=== PATIENT | female | born 1985 | race African-American/Black ===

== ENCOUNTER 2017-05-11 20:24 | Emergency (ER) | payer OTHER ==
[~2017-05-11] VITALS: Ht 170.2 cm; Wt 94.1 kg
[~2017-05-11 20:24] MED LIST: PREDNISONE10 M1 PO
[2017-05-11] MEDS ORDERED: ERGOCALCIF50000 UNIT PO (21:39)
[2017-05-11] MEDS ORDERED: PLAQUENIL200 MG PO (21:39)
[2017-05-11] MEDS ORDERED: IRON325 M1 PO (21:40)
[2017-05-11] MEDS ORDERED: PERCOCET 10/1 TABLET PO (21:41)
[2017-05-11] MEDS ORDERED: VENTOLIN HFA18 GM IH (21:41)
[2017-05-11] MEDS ORDERED: PROVENTIL,2.5 MG/3 M IH (21:42)
[2017-05-11] MEDS ORDERED: BUDESONIDE0.5 MG/2 M IH (21:43)
[2017-05-11] MEDS ORDERED: SINGULAIR10 MG PO (21:43)
[2017-05-11] MEDS ORDERED: ADVAIR 500/501 DISK IH (21:43)
[2017-05-11] MEDS ORDERED: PREDNISONE20 MG PO (21:44)
[2017-05-11 21:47] LABS: ADD MIUA? YES; BILIRUBIN NEGATIVE; BLOOD NEGATIVE; COLOR YELLOW ((YELLOW)); GLUCOSE (STRIP) NEGATIVE; KETONES NEGATIVE; LEUKOCYTES MODERATE; NITRITE NEGATIVE; PROTEIN (STRIP) NEGATIVE; SPECIFIC GRAVITY 1.014 (1.000-1.030); UROBILINOGEN 0.2 MG/DL (0.2-1.0)
[2017-05-11 21:48] LABS: CHLORIDE 105 mEq/L (99-109); POTASSIUM 3.5 mEq/L (3.7-5.4); SODIUM 139 mEq/L (136-147)
[2017-05-11 21:50] LABS: GLUCOSE 81 mg/dL (70-99)
[2017-05-11 21:51] LABS: ANION GAP 9 MEQ/L (2-14)
[2017-05-11 21:52] LABS: TOTAL BILIRUBIN 0.2 mg/dL (0.0-1.0)
[2017-05-11 21:54] LABS: ALKALINE PHOSPHATASE 53 IU/L (3-129); GFR ESTIMATE (CALCULATED) > 59 mL/min/; HEMATOCRIT 31.7 % (36.0-46.0); MCH 19.7 PG (29.0-34.0); MCHC 28.7 G/DL (30.0-36.0); MCV 68.6 FL (83-99); MEAN PLAT.VOLUME 9.1 uM^3 (9.5-12.4); PLATELET COUNT 392 K/uL (156-360); RBC DIS.WIDTH-CV 19.3 % (11.8-14.6); RBC DIS.WIDTH-SD 47.4 % (39-53); RED BLOOD COUNT 4.62 M/uL (3.80-5.20); WHITE BLOOD COUNT 7.8 K/uL (4.1-10.2)
[2017-05-11 21:55] LABS: UREA NITROGEN (BUN) 7 mg/dL (9-23)
[2017-05-11 21:59] LABS: BACTERIA RARE /HPF; EPITHELIAL CELLS 1+ /HPF; MUCUS 1+ /LPF; RED BLOOD CELLS 0-5 /HPF (0-5); UCUL ADDED? YES
[2017-05-11 22:03] LABS: QUANTITATIVE HCG < 4.0 MIU/ML
[2017-05-11 22:21] LABS: ERTH.SED.RATE 63 MM/HR (0-20)
[2017-05-11 22:23] LABS: C-REACTIVE PROTEIN 7.8 MG/L (0-10)
[2017-05-12 00:19] VITALS: BP 149/81
== END 2017-05-12 00:20 | disposition home or self-care (01) ==
LOC: EME 20:24
PROVIDERS: Physician Assistant
DX: M32.9 Systemic lupus erythematosus, unspecified (principal); D64.9 Anemia, unspecified
CPT/HCPCS: 80053; 81003; 84702; 85027; 85651; 86140; 87086; 99281; 99284; J2930; J3010; J7030

== ENCOUNTER 2017-05-17 17:10 | Emergency (ER) | payer OTHER ==
[~2017-05-17] VITALS: Ht 175.3 cm; Wt 94.8 kg
[~2017-05-17 17:10] MED LIST changes: +ADVAIR 500/501 DISK IH; +BUDESONIDE0.5 MG/2 M IH; +ERGOCALCIF50000 UNIT PO; +IRON325 M1 PO; +PERCOCET 10/1 TABLET PO; +PLAQUENIL200 MG PO; +PREDNISONE20 MG PO; +PROVENTIL,2.5 MG/3 M IH; +SINGULAIR10 MG PO; +VENTOLIN HFA18 GM IH
[2017-05-17 18:19] LABS: EOSINOPHIL (%) 2.3 % (0-5); EOSINOPHIL COUNT 0.2 K/uL (0-0.3); HEMATOCRIT 31.2 % (36.0-46.0); IMMATURE GRANULOCYTE (%) 0.3 % (0.0-0.7); INSTRUMENT ABS NEUTROPHIL CT 3.2 K/uL; LYMPHOCYTE COUNT 3.1 K/uL (1.0-2.8); MCH 19.7 PG (29.0-34.0); MCHC 28.8 G/DL (30.0-36.0); MCV 68.3 FL (83-99); MEAN PLAT.VOLUME 8.9 uM^3 (9.5-12.4); MONOCYTE COUNT 0.6 K/uL (0-0.8); NEUTROPHIL (%) 45.5 % (45-76); NEUTROPHIL COUNT 3.2 K/uL (1.8-6.4); PLATELET COUNT 390 K/uL (156-360); RBC DIS.WIDTH-CV 19.1 % (11.8-14.6); RBC DIS.WIDTH-SD 46.5 % (39-53); RED BLOOD COUNT 4.57 M/uL (3.80-5.20); WHITE BLOOD COUNT 7.1 K/uL (4.1-10.2)
[2017-05-17 18:22] LABS: CHLORIDE 107 mEq/L (99-109); POTASSIUM 3.2 mEq/L (3.7-5.4); SODIUM 139 mEq/L (136-147)
[2017-05-17 18:23] LABS: GLUCOSE 75 mg/dL (70-99)
[2017-05-17 18:25] LABS: ANION GAP 8 MEQ/L (2-14)
[2017-05-17 18:27] LABS: GFR ESTIMATE (CALCULATED) > 59 mL/min/
[2017-05-17 18:28] LABS: UREA NITROGEN (BUN) 7 mg/dL (9-23)
[2017-05-17 20:17] VITALS: BP 120/71
== END 2017-05-17 20:18 | disposition home or self-care (01) ==
LOC: EME 17:10
PROVIDERS: Physician Assistant
DX: D64.9 Anemia, unspecified (principal); E87.6 Hypokalemia; J45.909 Unspecified asthma, uncomplicated
CPT/HCPCS: 80048; 85025; 93005; 99281; 99283

== ENCOUNTER 2017-07-07 00:48 | Emergency (ER) | payer OTHER ==
[~2017-07-07] VITALS: Ht 175.3 cm; Wt 93.9 kg
[2017-07-07 01:28] LABS: HEMATOCRIT 32.5 % (36.0-46.0); MCH 21.1 PG (29.0-34.0); MCHC 29.8 G/DL (30.0-36.0); MCV 70.8 FL (83-99); MEAN PLAT.VOLUME 9.1 uM^3 (9.5-12.4); PLATELET COUNT 437 K/uL (156-360); RBC DIS.WIDTH-CV 23.2 % (11.8-14.6); RBC DIS.WIDTH-SD 53.9 % (39-53); RED BLOOD COUNT 4.59 M/uL (3.80-5.20)
[2017-07-07 01:33] LABS: CHLORIDE 108 mEq/L (99-109); POTASSIUM 3.4 mEq/L (3.7-5.4); SODIUM 138 mEq/L (136-147)
[2017-07-07 01:35] LABS: GLUCOSE 102 mg/dL (70-99)
[2017-07-07 01:36] LABS: ANION GAP 8 MEQ/L (2-14)
[2017-07-07 01:39] LABS: GFR ESTIMATE (CALCULATED) > 59 mL/min/
[2017-07-07 01:40] LABS: UREA NITROGEN (BUN) 11 mg/dL (9-23)
[2017-07-07 01:47] LABS: QUANTITATIVE HCG < 4.0 MIU/ML
[2017-07-07 05:20] VITALS: BP 130/88
== END 2017-07-07 05:21 | disposition home or self-care (01) ==
LOC: EME 00:48
PROVIDERS: Emergency Medicine
DX: R06.00 Dyspnea, unspecified (principal); D64.9 Anemia, unspecified; M32.9 Systemic lupus erythematosus, unspecified; J45.909 Unspecified asthma, uncomplicated
CPT/HCPCS: 71010; 71275; 80048; 84702; 85027; 85379; 93005; 94640; 99281; 99285; J7030

== ENCOUNTER 2017-08-24 18:41 | Emergency (ER) | payer OTHER ==
[~2017-08-24] VITALS: Ht 170.2 cm; Wt 92.6 kg
[2017-08-24] MEDS ORDERED: PREDNISONE10 M1 PO (20:05)
[2017-08-24 20:35] VITALS: BP 142/64
== END 2017-08-24 20:53 | disposition home or self-care (01) ==
LOC: EME 18:41
DX: M16.0 Bilateral primary osteoarthritis of hip (principal); M25.551 Pain in right hip; M32.9 Systemic lupus erythematosus, unspecified; J45.909 Unspecified asthma, uncomplicated; D64.9 Anemia, unspecified; R56.9 Unspecified convulsions; Z88.6 Allergy status to analgesic agent; Z91.041 Radiographic dye allergy status; Z88.8 Allergy status to other drugs, medicaments and biological substances
CPT/HCPCS: 73502; 99281; 99284; J7512

== ENCOUNTER 2017-09-25 10:08 | Emergency (ER) | payer OTHER ==
[~2017-09-25] VITALS: Ht 170.2 cm; Wt 91.4 kg
[2017-09-25 11:03] LABS: BASOPHIL (%) 0.3 % (0-1); EOSINOPHIL (%) 1.6 % (0-5); EOSINOPHIL COUNT 0.1 K/uL (0-0.3); HEMATOCRIT 33.1 % (36.0-46.0); HEMOGLOBIN 10.1 G/DL (11.9-15.5); LYMPHOCYTE (%) 43.2 % (15-42); LYMPHOCYTE COUNT 1.6 K/uL (1.0-2.8); MCH 23.4 PG (29.0-34.0); MCHC 30.5 G/DL (30.0-36.0); MCV 76.6 FL (83-99); MONOCYTE COUNT 0.5 K/uL (0-0.8); NEUTROPHIL (%) 42.9 % (45-76); NEUTROPHIL COUNT 1.6 K/uL (1.8-6.4); PLATELET COUNT 313 K/uL (156-360); RBC DIS.WIDTH-CV 19.1 % (11.8-14.6); RBC DIS.WIDTH-SD 53.2 % (39-53); RED BLOOD COUNT 4.32 M/uL (3.80-5.20); WHITE BLOOD COUNT 3.8 K/uL (4.1-10.2)
[2017-09-25 11:11] LABS: CHLORIDE 109 mEq/L (99-109); POTASSIUM 3.9 mEq/L (3.7-5.4); SODIUM 138 mEq/L (136-147)
[2017-09-25 11:13] LABS: GLUCOSE 88 mg/dL (70-99)
[2017-09-25 11:17] LABS: CREATININE 0.8 mg/dL (0.6-1.3); GFR ESTIMATE (CALCULATED) > 59 mL/min/
[2017-09-25 11:18] LABS: UREA NITROGEN (BUN) 8 mg/dL (9-23)
[2017-09-25 12:24] LABS: QUANTITATIVE HCG < 4.0 MIU/ML
[2017-09-25 12:45] LABS: APPEARANCE CLEAR ((CLEAR)); BILIRUBIN NEGATIVE; BLOOD NEGATIVE; COLOR YELLOW ((YELLOW)); GLUCOSE (STRIP) NEGATIVE; KETONES NEGATIVE; LEUKOCYTES NEGATIVE; NITRITE NEGATIVE; PROTEIN (STRIP) NEGATIVE; SPECIFIC GRAVITY 1.009 (1.000-1.030)
[2017-09-25 12:47] LABS: ERTH.SED.RATE 29 MM/HR (0-20)
[2017-09-25 13:06] LABS: C-REACTIVE PROTEIN 5.1 MG/L (0-10)
[2017-09-25] MEDS ORDERED: ZOFRAN ODT4 MG PO (14:37)
[2017-09-25] MEDS ORDERED: PREDNISONE20 MG PO (14:37)
[2017-09-25 14:51] VITALS: BP 101/76
== END 2017-09-25 14:51 | disposition home or self-care (01) ==
LOC: EME 10:08
PROVIDERS: Nurse Practitioner Family
DX: M79.1 Myalgia (principal); D70.9 Neutropenia, unspecified; D64.9 Anemia, unspecified; R11.2 Nausea with vomiting, unspecified; R06.02 Shortness of breath; M32.9 Systemic lupus erythematosus, unspecified; J45.909 Unspecified asthma, uncomplicated; Z79.52 Long term (current) use of systemic steroids
CPT/HCPCS: 71046; 80048; 81003; 84702; 85025; 85651; 86140; 99281; 99284

== ENCOUNTER 2017-09-27 19:33 | Emergency (ER) | payer OTHER ==
[~2017-09-27] VITALS: Ht 170.2 cm; Wt 95.1 kg
[~2017-09-27 19:33] MED LIST changes: +ZOFRAN ODT4 MG PO
[2017-09-27 21:08] LABS: HEMATOCRIT 31.3 % (36.0-46.0); HEMOGLOBIN 9.9 G/DL (11.9-15.5); MCH 24.1 PG (29.0-34.0); MCHC 31.6 G/DL (30.0-36.0); MCV 76.2 FL (83-99); PLATELET COUNT 326 K/uL (156-360); RBC DIS.WIDTH-CV 19.1 % (11.8-14.6); RBC DIS.WIDTH-SD 53.1 % (39-53); RED BLOOD COUNT 4.11 M/uL (3.80-5.20)
[2017-09-27 21:17] LABS: CHLORIDE 110 mEq/L (99-109); POTASSIUM 3.4 mEq/L (3.7-5.4); SODIUM 140 mEq/L (136-147)
[2017-09-27 21:20] LABS: GLUCOSE 90 mg/dL (70-99); TOTAL PROTEIN 7.3 g/dL (6.4-8.3)
[2017-09-27 21:21] LABS: TOTAL BILIRUBIN 0.1 mg/dL (0.0-1.0)
[2017-09-27 21:23] LABS: ALKALINE PHOSPHATASE 46 IU/L (3-129); CREATININE 0.8 mg/dL (0.6-1.3); GFR ESTIMATE (CALCULATED) > 59 mL/min/
[2017-09-27 21:24] LABS: UREA NITROGEN (BUN) 8 mg/dL (9-23)
[2017-09-27 21:25] LABS: AST (GOT) 13 IU/L (2-34)
[2017-09-27 21:26] LABS: ALT (GPT) 14 IU/L (3-49)
[2017-09-27 21:38] LABS: QUANTITATIVE HCG < 4.0 MIU/ML
[2017-09-27 22:59] LABS: ERTH.SED.RATE 38 MM/HR (0-20)
[2017-09-27 23:00] LABS: C-REACTIVE PROTEIN 4.2 MG/L (0-10)
[2017-09-28 00:46] VITALS: BP 114/88
== END 2017-09-28 00:47 | disposition home or self-care (01) ==
LOC: RME 19:33 → EME 19:33 → RME 09-28 00:47
DX: M32.9 Systemic lupus erythematosus, unspecified (principal); D64.9 Anemia, unspecified; E87.6 Hypokalemia; R11.2 Nausea with vomiting, unspecified; R05 Cough; J45.909 Unspecified asthma, uncomplicated; Z79.52 Long term (current) use of systemic steroids
CPT/HCPCS: 71046; 80053; 81003; 84702; 85027; 85651; 86140; 94640; 99281; 99284

== ENCOUNTER 2018-02-26 08:10 | Emergency (ER) | payer OTHER ==
[~2018-02-26] VITALS: Ht 170.2 cm; Wt 95.5 kg
[~2018-02-26 08:10] MED LIST changes: +ENDOCET 10-3251 EACH PO; +FERROUS SULFAT325 MG PO; +HYDROXYCHLOROQ200 MG PO; +PULMICORT FLE180 MCG IH; +TESSALON PERLE100 MG PO; +XULANE PATCH1 EACH TD
[2018-02-26 08:56] LABS: HEMATOCRIT 37.8 % (36.0-46.0); HEMOGLOBIN 12.2 G/DL (11.9-15.5); MCH 26.8 PG (29.0-34.0); MCHC 32.3 G/DL (30.0-36.0); MCV 82.9 FL (83-99); PLATELET COUNT 262 K/uL (156-360); RBC DIS.WIDTH-CV 20.8 % (11.8-14.6); RBC DIS.WIDTH-SD 61.7 % (39-53); RED BLOOD COUNT 4.56 M/uL (3.80-5.20); WHITE BLOOD COUNT 5.4 K/uL (4.1-10.2)
[2018-02-26 09:00] LABS: BASOPHIL (%) 0.4 % (0-1); EOSINOPHIL (%) 2.6 % (0-5); EOSINOPHIL COUNT 0.1 K/uL (0-0.3); IMMATURE GRANULOCYTE (%) 0.4 % (0.0-0.7); LYMPHOCYTE (%) 34.4 % (15-42); LYMPHOCYTE COUNT 1.9 K/uL (1.0-2.8); MONOCYTE (%) 6.9 % (3-12); MONOCYTE COUNT 0.4 K/uL (0-0.8); NEUTROPHIL (%) 55.3 % (45-76)
[2018-02-26 10:37] VITALS: BP 148/88
== END 2018-02-26 10:38 | disposition home or self-care (01) ==
LOC: EME 08:10
PROVIDERS: Emergency Medicine
DX: Z32.01 Encounter for pregnancy test, result positive (principal); J45.909 Unspecified asthma, uncomplicated; Z88.6 Allergy status to analgesic agent; Z88.8 Allergy status to other drugs, medicaments and biological substances; Z91.041 Radiographic dye allergy status
CPT/HCPCS: 84702; 85025; 99281; 99283

== ENCOUNTER 2018-03-01 12:37 | Emergency (ER) | payer OTHER ==
[~2018-03-01] VITALS: Ht 170.2 cm; Wt 95.8 kg
[2018-03-01 14:08] VITALS: BP 131/87
== END 2018-03-01 14:09 | disposition home or self-care (01) ==
LOC: EME 12:37
DX: Z32.01 Encounter for pregnancy test, result positive (principal); M32.9 Systemic lupus erythematosus, unspecified; J45.909 Unspecified asthma, uncomplicated; Z88.6 Allergy status to analgesic agent
CPT/HCPCS: 84702; 99281; 99284

== ENCOUNTER 2018-03-06 20:26 | Emergency (ER) | payer OTHER ==
[~2018-03-06] VITALS: Ht 170.2 cm; Wt 96.3 kg
[2018-03-06 20:53] LABS: HEMATOCRIT 35.7 % (36.0-46.0); HEMOGLOBIN 11.9 G/DL (11.9-15.5); MCH 27.7 PG (29.0-34.0); MCHC 33.3 G/DL (30.0-36.0); PLATELET COUNT 292 K/uL (156-360); RBC DIS.WIDTH-CV 22.1 % (11.8-14.6); RBC DIS.WIDTH-SD 64.9 % (39-53); WHITE BLOOD COUNT 6.3 K/uL (4.1-10.2)
[2018-03-06 22:52] LABS: SOURCE SWAB
[2018-03-06 22:55] LABS: APPEARANCE SL.HAZY ((CLEAR)); BILIRUBIN NEGATIVE; BLOOD MODERATE; COLOR YELLOW ((YELLOW)); GLUCOSE (STRIP) NEGATIVE; KETONES NEGATIVE; LEUKOCYTES TRACE; NITRITE NEGATIVE; PROTEIN (STRIP) NEGATIVE; SPECIFIC GRAVITY 1.018 (1.000-1.030)
[2018-03-06 23:00] LABS: BACTERIA RARE /HPF; EPITHELIAL CELLS RARE /HPF; MUCUS 2+ /LPF; RED BLOOD CELLS 0-5 /HPF (0-5); UCUL ADDED? NO; WHITE BLOOD CELLS 0-5 /HPF (0-5)
[2018-03-06 23:11] VITALS: BP 123/81
== END 2018-03-06 23:12 | disposition home or self-care (01) ==
LOC: EME 20:26
PROVIDERS: Emergency Medicine
DX: O20.0 Threatened abortion (principal); O99.89 Other specified diseases and conditions complicating pregnancy, childbirth and the puerperium; M32.9 Systemic lupus erythematosus, unspecified; O99.511 Diseases of the respiratory system complicating pregnancy, first trimester; J45.909 Unspecified asthma, uncomplicated; Z3A.01 Less than 8 weeks gestation of pregnancy; Z91.041 Radiographic dye allergy status; Z88.6 Allergy status to analgesic agent; Z88.8 Allergy status to other drugs, medicaments and biological substances
CPT/HCPCS: 76801; 81003; 84702; 85027; 86900; 86901; 87210; 87491; 87591; 99281; 99284

== ENCOUNTER 2018-04-07 21:19 | Emergency (ER) | payer OTHER ==
[~2018-04-07] VITALS: Ht 170.2 cm; Wt 95.6 kg
[2018-04-07 22:42] LABS: HEMATOCRIT 35.7 % (36.0-46.0); HEMOGLOBIN 12.1 G/DL (11.9-15.5); MCH 29.2 PG (29.0-34.0); MCHC 33.9 G/DL (30.0-36.0); MCV 86.2 FL (83-99); RBC DIS.WIDTH-CV 20.3 % (11.8-14.6); RBC DIS.WIDTH-SD 62.2 % (39-53); RED BLOOD COUNT 4.14 M/uL (3.80-5.20); WHITE BLOOD COUNT 5.6 K/uL (4.1-10.2)
[2018-04-07 22:43] LABS: PLATELET COUNT 216 K/uL (156-360)
[2018-04-07 22:50] LABS: ALBUMIN 4.1 g/dL (3.2-4.8); CHLORIDE 107 mEq/L (99-109); POTASSIUM 3.5 mEq/L (3.7-5.4); SODIUM 141 mEq/L (136-147)
[2018-04-07 22:52] LABS: GLUCOSE 104 mg/dL (70-99); TOTAL PROTEIN 7.2 g/dL (6.4-8.3)
[2018-04-07 22:54] LABS: TOTAL BILIRUBIN 0.2 mg/dL (0.0-1.0)
[2018-04-07 22:56] LABS: ALKALINE PHOSPHATASE 55 IU/L (3-129); CREATININE 0.7 mg/dL (0.6-1.3); GFR ESTIMATE (CALCULATED) > 59 mL/min/
[2018-04-07 22:57] LABS: UREA NITROGEN (BUN) 7 mg/dL (9-23)
[2018-04-07 22:58] LABS: AST (GOT) 12 IU/L (2-34)
[2018-04-07 22:59] LABS: ALT (GPT) 15 IU/L (3-49); LIPASE 33 U/L (1.0-51.0)
[2018-04-07 23:08] LABS: QUANTITATIVE HCG < 4.0 MIU/ML
[2018-04-07 23:22] LABS: APPEARANCE CLEAR ((CLEAR)); BILIRUBIN NEGATIVE; BLOOD LARGE; COLOR YELLOW ((YELLOW)); GLUCOSE (STRIP) NEGATIVE; KETONES NEGATIVE; LEUKOCYTES NEGATIVE; NITRITE NEGATIVE; PROTEIN (STRIP) NEGATIVE
[2018-04-07 23:37] LABS: BACTERIA NONE SEEN /HPF; EPITHELIAL CELLS 1+ /HPF; HYALINE CASTS 0-5 /LPF; MUCUS TRACE /LPF; RED BLOOD CELLS 0-5 /HPF (0-5); UCUL ADDED? NO; WHITE BLOOD CELLS 0-5 /HPF (0-5)
[2018-04-08 00:42] VITALS: BP 113/78
== END 2018-04-08 00:42 | disposition home or self-care (01) ==
LOC: EME 21:19
PROVIDERS: Emergency Medicine
DX: N92.0 Excessive and frequent menstruation with regular cycle (principal); M32.9 Systemic lupus erythematosus, unspecified; J45.909 Unspecified asthma, uncomplicated; Z88.6 Allergy status to analgesic agent; Z88.8 Allergy status to other drugs, medicaments and biological substances; Z91.041 Radiographic dye allergy status
CPT/HCPCS: 80053; 81003; 83690; 84702; 85027; 99281; 99285; J2405; J7030